=== PATIENT | female | born 1930 | race Caucasian/White ===

== ENCOUNTER 2016-12-20 10:10 | Emergency (ER) | payer MEDICARE, BC ==
[~2016-12-20] VITALS: Ht 162.6 cm; Wt 68.2 kg
[~2016-12-20 10:10] MED LIST: AMOXICILLIN 8751 TAB PO; ARICEPT5 MG PO; ASPI325T6 PO; ASPIRIN 32325 MG/TAB PO; ATROVENT I0.2 MG/1 M IH; BENTYL 10MG10 MG/CAP PO; BETAPACE 80MG80 MG PO; CALTRATE 600 +1 TAB PO; CELEXA 20MG20 MG/TAB PO; CENTRUM SILVER1 CTB PO; CENTRUM SILVER1 TA1 PO; CREON; CRESTOR10 MG PO; DAILY VITAMIN1 TAB PO; DESYREL 50MG50 MG PO; ELAVIL10 MG PO; HALDOL .5M0.5 MG/TAB PO; IMODIUM 2MG CAPS2 MG PO; LASIX 20MG TABL20 MG PO; LEVAQUIN 5500 MG/TA1 PO; LISINOPRIL PO; LOMOTIL 0.025 M1 TAB PO; LOPRESSOR 225 MG/TAB PO; LOTRIMIN AF1%; LOTRIMIN1% TP; MEPERIDINE HCL50 MG PO; MINOCYCLIN100 MG/CAP PO; MULTIPLE VITAMI1 CAP PO; PAXIL 10MG10 MG PO; PERCOCET 325 MG1 TAB PO; PREMARIN .3MG0.3 MG PO; PREMARIN 0.60.625 MG PO; PRINIVIL40 MG PO; RT ALBUTER2.5 MG/0.5 IH; TYLENOL 325MG325 MG PO; UNABLE; VALIUM 5MG T5 MG/TAB PO; VITAMINS; ZOFRAN 4MG T4 MG/TAB PO; ZOFRAN ODT4 MG PO; ZOFRAN4 MG PO; [UNRECOGNIZED DRUG - CODE] PO
[2016-12-20 10:13] VITALS: TEMP 98.6
[2016-12-20 11:23] LABS: BASO % 0.3 % (0.0-2.0); EOS # 0.1 (0.0-0.7); EOS % 0.7 % (0-4.0); GRAN % 80.6 % (42.2-75.2); HEMATOCRIT 37.5 % (37.0-47.0); LYMPH # 1.1 (1.2-3.4); LYMPH % 9.9 % (20.0-51.0); MEAN CELL VOLUME 96 fl (80.0-100.0); MEAN CORPUSCULAR HEMOGLOBIN 31 pg (27.0-31.0); MEAN CORPUSCULAR HGB CONC 32 g/dl (33.0-37.0); MEAN PLATELET VOLUME 12.3 fl (7.4-10.4); MONO # 0.9 (0.1-0.6); MONO % 8.1 % (1.7-9.3); PLATELET COUNT 279 K/mm3 (130-400); REDCELL DISTRIBUTION WIDTH-CV 12.6 % (11.5-14.5); WHITE BLOOD COUNT 11.2 K/mm3 (4.8-10.8)
[2016-12-20 11:24] LABS: HEMOGLOBIN 11.9 g/dl (12.5-16.0)
[2016-12-20 11:29] LABS: ADJUSTED CALCIUM 9.7 mg/dL (8.4-10.2); ALBUMIN 3.2 gm/dL (3.5-5.0); BILIRUBIN,TOTAL 0.7 mg/dL (0.0-1.0); CALCIUM 9.1 mg/dL (8.4-10.2); CREATININE, serum 1.71 mg/dL (0.52-1.25); POTASSIUM 4.1 mmol/L (3.4-5.0); TOTAL PROTEIN 6.4 gm/dL (6.4-8.2)
[2016-12-20] MEDS ORDERED: AMOXICILLIN 8751 TAB PO (11:50)
[2016-12-20 12:13] LABS: PH 8 (5-8); SQUAMOUS EPITHELIAL 0-2 /hpf; URINE BACTERIA Rare /hpf; URINE BILIRUBIN Negative (NEGATIVE); URINE BLOOD Negative (NEGATIVE); URINE COLOR Amber; URINE GLUCOSE Negative (NEGATIVE); URINE KETONE Negative (NEGATIVE); URINE TRIPLE PHOSPHATE CRYSTAL Present /hpf; URINE UROBILINOGEN Negative (NEGATIVE)
[2016-12-20 12:14] LABS: URINE APPEARANCE Turbid
[2016-12-20 12:41] VITALS: BP 182/76; PULSE 91
== END 2016-12-20 12:56 | disposition home or self-care (01) ==
LOC: COL.ER 10:10
PROVIDERS: Family Medicine
DX: J18.9 Pneumonia, unspecified organism (principal); Z86.73 Personal history of transient ischemic attack (TIA), and cerebral infarction without residual deficits
CPT/HCPCS: J0696

== ENCOUNTER 2017-04-28 21:34 | Emergency (ER) | payer MEDICARE, BC ==
[~2017-04-28] VITALS: Ht 162.6 cm; Wt 62.1 kg
[2017-04-28 21:38] VITALS: BP 209/91; TEMP 97.7
[2017-04-28] MEDS ORDERED: PROCARDIA XL 3030 MG PO (22:09)
[2017-04-28] MEDS ORDERED: TOPROL XL 25MG25 MG PO (22:13)
[2017-04-28 23:14] VITALS: PULSE 68
[2017-04-28 23:25] LABS: PH 6 (5-8); SQUAMOUS EPITHELIAL None Seen /hpf; URINE APPEARANCE Clear; URINE BACTERIA None Seen /hpf; URINE BILIRUBIN Negative (NEGATIVE); URINE BLOOD 2+ (NEGATIVE); URINE COLOR Straw; URINE GLUCOSE Negative (NEGATIVE); URINE KETONE Negative (NEGATIVE); URINE UROBILINOGEN Negative (NEGATIVE)
== END 2017-04-28 23:14 | disposition home or self-care (01) ==
LOC: COL.ER 21:34
PROVIDERS: Emergency Medicine
DX: N99.820 Postprocedural hemorrhage of a genitourinary system organ or structure following a genitourinary system procedure (principal); Z93.6 Other artificial openings of urinary tract status; Z79.82 Long term (current) use of aspirin; Z85.51 Personal history of malignant neoplasm of bladder

== ENCOUNTER 2017-11-19 21:18 | Emergency (ER) | payer MEDICARE, BC ==
[~2017-11-19] VITALS: Ht 162.6 cm; Wt 68.2 kg
[~2017-11-19 21:18] MED LIST changes: +PROCARDIA XL 3030 MG PO; +TOPROL XL 25MG25 MG PO
[2017-11-19 21:25] VITALS: BP 187/79; TEMP 98
[2017-11-19 22:56] VITALS: PULSE 78
== END 2017-11-19 22:56 | disposition home or self-care (01) ==
LOC: COL.ER 21:18
DX: Z43.6 Encounter for attention to other artificial openings of urinary tract (principal); Z86.73 Personal history of transient ischemic attack (TIA), and cerebral infarction without residual deficits; Z85.51 Personal history of malignant neoplasm of bladder; Z87.19 Personal history of other diseases of the digestive system; Z90.49 Acquired absence of other specified parts of digestive tract; Z98.890 Other specified postprocedural states; Z79.82 Long term (current) use of aspirin

== ENCOUNTER 2018-01-01 23:00 | Emergency (ER) | payer MEDICARE, BC ==
[~2018-01-01] VITALS: Ht 160 cm; Wt 68.2 kg
[2018-01-01 23:04] VITALS: TEMP 98
[2018-01-01 23:24] LABS: BASO % 0.3 % (0.0-2.0); EOS # 0.2 (0.0-0.7); EOS % 2.4 % (0-4.0); GRAN # 4.6 (1.4-6.5); GRAN % 67.4 % (42.2-75.2); HEMATOCRIT 33.6 % (37.0-47.0); HEMOGLOBIN 10.5 g/dl (12.5-16.0); LYMPH # 1.4 (1.2-3.4); LYMPH % 20.4 % (20.0-51.0); MEAN CELL VOLUME 99 fl (80.0-100.0); MEAN CORPUSCULAR HEMOGLOBIN 31 pg (27.0-31.0); MEAN CORPUSCULAR HGB CONC 31 g/dl (33.0-37.0); MEAN PLATELET VOLUME 12.2 fl (7.4-10.4); MONO # 0.6 (0.1-0.6); MONO % 9.2 % (1.7-9.3); PLATELET COUNT 235 K/mm3 (130-400); RED BLOOD COUNT 3.38 M/mm3 (4.10-5.30); REDCELL DISTRIBUTION WIDTH-CV 14.7 % (11.5-14.5)
[2018-01-01 23:33] LABS: ALBUMIN 3.6 gm/dL (3.5-5.0); BILIRUBIN,TOTAL 0.3 mg/dL (0.0-1.0); CALCIUM 8.6 mg/dL (8.4-10.2); CREATININE, serum 1.73 mg/dL (0.52-1.25); MAGNESIUM 1.9 mg/dL (1.6-2.3); PHOSPHOROUS 5.3 mg/dL (2.5-4.5); POTASSIUM 3.6 mmol/L (3.4-5.0); TOTAL PROTEIN 7.2 gm/dL (6.4-8.2)
[2018-01-01 23:45] LABS: TROPONIN-I 0.024 ng/mL (0.000-0.034)
[2018-01-02 00:03] LABS: THYROID STIMULATING HORMONE 6.1 uIU/mL (0.465-4.680)
[2018-01-02 03:29] LABS: COLLECTION METHOD CATHETER
[2018-01-02] MEDS ORDERED: PROCARDIA XL 3030 MG PO (03:43)
[2018-01-02] MEDS ORDERED: BETAPACE 80MG80 MG PO (03:43)
[2018-01-02 04:14] LABS: AMORPHOUS CRYSTAL Present /uL; PH 9 (5-8); SQUAMOUS EPITHELIAL None Seen /hpf; URINE APPEARANCE Cloudy; URINE BACTERIA Many /hpf; URINE BILIRUBIN Negative (NEGATIVE); URINE BLOOD Negative (NEGATIVE); URINE COLOR Yellow; URINE GLUCOSE Negative (NEGATIVE); URINE KETONE Negative (NEGATIVE); URINE LEUKOCYTE ESTERASE Negative (NEGATIVE); URINE NITRATE Positive (NEGATIVE); URINE PROTEIN(semi-quant) 2+ (NEGATIVE); URINE TRIPLE PHOSPHATE CRYSTAL Present /hpf; URINE UROBILINOGEN Negative (NEGATIVE)
[2018-01-02 04:29] VITALS: BP 187/76; PULSE 80
== END 2018-01-02 04:31 | disposition home or self-care (01) ==
LOC: COL.ER 23:00
PROVIDERS: Emergency Medicine
DX: R00.2 Palpitations (principal); I10 Essential (primary) hypertension; F03.90 Unspecified dementia, unspecified severity, without behavioral disturbance, psychotic disturbance, mood disturbance, and anxiety; Z85.51 Personal history of malignant neoplasm of bladder; Z90.710 Acquired absence of both cervix and uterus; Z90.49 Acquired absence of other specified parts of digestive tract; Z90.5 Acquired absence of kidney; Z93.6 Other artificial openings of urinary tract status
CPT/HCPCS: J2060